=== PATIENT | male | born 1975 | race Caucasian/White ===

== ENCOUNTER 2023-01-31 07:57 | Day surgery (SDC) | payer OTHER ==
[2023-01-31] MEDS ORDERED: diphenhydrAMINE 50 MG/ML VIAL ONE (08:41)
[2023-01-31] MEDS ORDERED: fentaNYL citrate 0.05 MG/ML VIAL ONE (08:41)
[2023-01-31] MEDS ORDERED: MIDAZOLAM 2 MG/2 ML VIAL ONE (08:42)
[2023-01-31] MEDS ORDERED: diphenhydrAMINE 50 MG/ML VIAL IVP ONE (10:05)
[2023-01-31] MEDS ORDERED: MIDAZOLAM 2 MG/2 ML VIAL IVP ONE (10:05)
[2023-01-31] MEDS ORDERED: fentaNYL citrate 0.05 MG/ML VIAL IVP ONE (10:05)
== END 2023-01-31 10:05 | disposition home or self-care (01) ==
LOC: MOR 07:57 → MMU 07:58 → MOR 10:05
PROVIDERS: ATTEND Internal Medicine Gastroenterology
DX: K22.70 Barrett's esophagus without dysplasia (principal); K21.00 Gastro-esophageal reflux disease with esophagitis, without bleeding; K44.9 Diaphragmatic hernia without obstruction or gangrene; Z80.0 Family history of malignant neoplasm of digestive organs; Z79.899 Other long term (current) drug therapy
CPT/HCPCS: 43239; 88305; 88312; 88313; 88342; J1200; J2250; J3010